=== PATIENT | female | born 1955 | race Caucasian/White ===

== ENCOUNTER 2016-12-11 18:05 | Emergency (ER) | payer OTHER ==
[~2016-12-11] VITALS: Ht 170.2 cm; Wt 81.0 kg
[2016-12-11 18:08] VITALS: Ht 170.2 cm; Wt 81.0 kg
[2016-12-11] MEDS ORDERED: ONDANSETRON 4 MG INJ IV STA (19:18)
--- NOTE | 2016-12-11 19:25 | ERD ---
ER Documentation Chief Complaint Date/Time DATE: 12/11/16 TIME: 19:20 Chief Complaint FEVER , COUGH , VOMITING ,DIARRHEA X 5 DAYS , BURNING URINATION HPI This pleasant 61-year-old female presents to emergency department today for multiple complaints. Patient reports 3 days ago she developed abdominal pain, dysuria, urinary incontinence and frequency, vomiting and diarrhea. Fever. Patient reports that she has not been able to eat without vomiting, today 3 emesis, and 6 watery diarrhea stools. Patient reports fever up to 101 controlled with Tylenol and Motrin. States fevers return when not medicated. Patient denies back pain patient denies any history of diabetes mellitus, cholecystitis, pancreatitis. Denies alcohol and smoking. ROS All systems reviewed and are negative except as per history of present illness. Medications Home Meds Active Scripts Ibuprofen* (Motrin*) 600 Mg Tab, 600 MG PO Q6, #30 TAB Prov:ARNEL,PATY 12/11/16 Cephalexin* (Keflex*) 500 Mg Capsule, 500 MG PO TID for 10 Days, CAP Prov:ARNEL,PATY 12/11/16 Allergies Allergies: Coded Allergies: No Known Allergy (Unverified , 12/11/16) Physical Exam Vitals Vital Signs Date Time Temp Pulse Resp B/P Pulse Ox O2 Delivery O2 Flow Rate FiO2 12/11/16 22:46 98.6 73 18 125/64 95 Room Air 12/11/16 18:08 101.2 102 18 126/76 99 Vitals stable, nursing notes reviewed, temperature 101.2 noted, pulse 102. Motrin 600 mg p.o. ordered. Physical Exam Const: No acute distress Head: Atraumatic Eyes: Normal Conjunctiva, no jaundice, PERRLA, EOMI ENT: Normal External Ears, Nose and Mouth. Mucous membranes moist Neck: Full range of motion..~ No meningismus. Resp: Chest rise and fall symmetrically clear to auscultation bilaterally, no rales wheezes or rhonchi with expiration Cardio: Regular rate and rhythm, no murmurs Abd: Abdomen obese, pelvic tenderness to palpation. Klein sign negative, no McBurney's point tenderness, no CVA tenderness Skin: Back: No midline or flank tenderness Ext: No cyanosis, or edema Neur: Awake and alert Psych: Normal Mood and Affect Results 24 hrs Laboratory Tests Test 12/11/16 21:32 4/11/17 22:00 Bedside Urine pH (LAB) 6.0 Bedside Urine Protein (LAB) 2+ Bedside Urine Glucose (UA) Negative Bedside Urine Ketones (LAB) Negative Bedside Urine Blood 2+ Bedside Urine Nitrite (LAB) Positive Bedside Urine Leukocyte Esterase (L 1+ Urine Color YELLOW Urine Clarity CLOUDY Urine pH 6.0 Urine Specific [place] 1.020 Urine Ketones NEGATIVE Urine Nitrite POSITIVE Urine Bilirubin 1+ Urine Ictotest NEGATIVE Urine Urobilinogen 4.0 E.U./dL Urine Leukocyte Esterase 2+ Urine Microscopic RBC 2-5/HPF Urine Microscopic WBC >200/HPF Urine Squamous Epithelial Cells FEW Urine Bacteria MANY Urine Hemoglobin 3+ Urine Glucose NEGATIVE% Urine Total Protein 2+ Current Medications Medications (Trade) Dose Ordered Sig/Hamzah Route PRN Reason Start Time Stop Time Status Last Admin Dose Admin Sodium Chloride (NS) 1,000 ml @ 1,000 mls/hr Q1H ONCE IV 12/11/16 19:30 12/11/16 20:29 DC 12/11/16 19:56 Ondansetron HCl (Zofran Inj) 4 mg ONCE STAT IV 12/11/16 19:18 12/11/16 19:20 DC 12/11/16 19:55 Ibuprofen (Motrin) 600 mg ONCE ONCE PO 12/11/16 19:30 12/11/16 19:31 DC 12/11/16 19:55 Ceftriaxone Sodium (Rocephin) 1 gm ONCE ONCE IM 12/11/16 22:30 12/11/16 22:31 DC 12/11/16 22:17 Urinalysis positive for evidence of infection, nitrates, leukocytes, hematuria present. Procedures/MDM This 61-year-old female presents to emergency department with fever, dysuria, urinary incontinence, diarrhea, cough and vomiting patient reports she feels dehydrated, symptoms started 3 days ago denies possibility of contaminated food. Patient states she has never usually sick on no routine medication. Denies any pre-existing kidney disease. Pyelonephritis, cholecystitis, pancreatitis, biliary colic considered, patient receives 1 L of normal saline, Zofran, Motrin for pain and fever reduction, and patient resting comfortably in emergency department until urinalysis results available. Urinalysis positive for evidence of infection, leukocytosis, nitrates and hematuria all present. No further diagnostic evaluation indicated. Patient will be treated for urinary tract infection/pyelonephritis, 1 g of Rocephin given intramuscularly, discharged home with Keflex 500 mg 1 tab p.o. 3 times daily 7 days. Motrin to use as needed for pain and fever reduction. Follow-up with primary physician for repeat urinalysis after 7 days return to emergency room for worsening of symptoms, fever not reduce by Motrin. Pack pain, hematuria, nausea or vomiting. I feel the patient is stable for discharge at this time. I have discussed results, examination findings, the treatment plan with the patient and family present prior to discharge. Indications for emergent reevaluation, side effects of medication were also discussed. All questions were answered. Patient verbalizes understanding and agrees with plan of care. Departure Diagnosis: Primary Impression: Pyelonephritis Condition: Good Patient Instructions: Understanding Urinary Tract Infections (UTIs) Referrals: [facility] Additional Instructions: Thank you for for coming to [facility] for your care today. Please ask your nurse or provider if you have questions about your care today and do not leave until all your questions have been answered. Please use any medications given as directed and follow-up with your doctor (or the doctor you were referred to) in the next 2-3 days. If you do not have a primary care doctor you may follow up at the [facility] (listed below). You may also use motrin and tylenol as needed for fever and/or pain unless instructed otherwise by your provider or nurse. Indications for more urgent follow-up have been discussed, but you may return to the Emergency Department at ANY time for any worrisome or worsening symptoms. If you have abdominal pain, please know that no test or exam you received is perfect and you should follow up within 8 hours for continued pain. If you had any imaging studies today, such as an X-Ray or CT Scan, these studies will be reviewed later by a radiologist. You will be called if there are important findings that were not identified today, so make sure the contact information you provided at registration is correct. If you received any narcotic pain control medicine today, such as Vicodin, Morphine or Dilaudid, your coordination and judgment may be affected for a number of hours. Please do not drive or operate heavy machinery, and you may want someone to assist you at home. If you were given a prescription for narcotic medication, be aware that it is very addictive- use sparingly and only if necessary. ARNEL,PATY Dec 11, 2016 19:24
[2016-12-11] MEDS ORDERED: SOD CHLORIDE 0.9% 1,000 ML IV ONE (19:30)
[2016-12-11] MEDS ORDERED: IBUPROFEN 600 MG TAB PO ONE (19:30)
[2016-12-11 21:32] LABS: URINE BLOOD (Dip) POC 2+ (NEGATIVE)
[2016-12-11 22:04] LABS: ADD UMIC YES; URINE BILIRUBIN (Dip) 1+ (NEGATIVE); URINE BLOOD (Dip) 3+ (NEGATIVE); URINE COLOR YELLOW (YELLOW); URINE GLUCOSE (Dip) NEGATIVE (NEGATIVE); URINE KETONES (Dip) NEGATIVE (NEGATIVE); URINE LEUKOCYTE ESTERASE (Dip) 2+ (NEGATIVE); URINE NITRITE (Dip) POSITIVE (NEGATIVE); URINE TOTAL PROTEIN (Dip) 2+ (NEGATIVE); URINE UROBILINOGEN (Dip) 4.0 E.U./dL (0.1-1.0)
[2016-12-11] MEDS ORDERED: CEPH-443 PO (22:23)
[2016-12-11] MEDS ORDERED: IBUP-1542 PO (22:24)
[2016-12-11 22:25] LABS: BACTERIA,URINE MANY; SQUAMOUS EPITHELIAL CELL,UR FEW
[2016-12-11] MEDS ORDERED: CEFTRIAXONE 1 GM INJ IM ONE (22:30)
[2016-12-11 22:41] LABS: ICTOTEST NEGATIVE (NEGATIVE)
[2016-12-11 22:46] VITALS: BP 125/64; PULSE 73; RESP 18; TEMP 98.6
== END 2016-12-11 22:46 | disposition home or self-care (01) ==
LOC: FTE 18:05
DX: N12 Tubulo-interstitial nephritis, not specified as acute or chronic (principal); R11.10 Vomiting, unspecified; Z87.891 Personal history of nicotine dependence
CPT/HCPCS: 81001; 81003; 96372; 96374; J0696; J2405; J7030; Z7502; Z7610

== ENCOUNTER 2017-12-19 00:45 | Emergency (ER) | END 2017-12-19 03:29 | disposition home or self-care (01) ==